=== PATIENT | female | born 1945 | race Caucasian/White ===

== ENCOUNTER → 2017-03-07 | Outpatient (CLI) | payer MEDICARE ==
[~2017-03-07] MED LIST: ACET500T67 PO; ASPI-611 PO; CARB200T5; CITA-50 PO; CLON0.1T97 PO; DOXY100T2 PO; ERGO400C PO; LACT1CAP67 PO; LOVA20TA71 PO; POTA20TA10; PRED20TA PO; PREN1TAB73 PO; TORS10TA17 PO; [UNRECOGNIZED DRUG - CODE] PO
--- NOTE | 2017-03-07 11:15 | DI ---
Indication: ITS.REASON: M25.551 PAIN IN RIGHT HIP PROCEDURE: HIP RIGHT 2 VIEW: Encounter: Initial Comparison: None Findings: There is no acute fracture, dislocation or malalignment identified. Mild degenerative change in the hip joint with small osteophytes on the femoral head. Minimal axial joint space narrowing. Impression: No acute osseous abnormality. Mild osteoarthritis. .
--- NOTE | 2017-03-07 11:17 | DI ---
Indication: ITS.REASON: M54.5 LOW BACK PAIN PROCEDURE: LUMBAR SPINE COMP W/O BEND: Encounter: Initial Comparison: MRI lumbar spine dated August 18, 2015 Findings: Alignment of the lumbar spine is stable. No acute fracture identified. Chronic mild L1 compression deformity. Severe disk space narrowing at L2-L3, L3-L4 with moderate narrowing at L4-L5 and L5-S1. The oblique views show no obvious pars defects. Degenerative facet disease at L5-S1. Cholecystectomy clips. Impression: Moderate to severe degenerative disk disease of the lumbar spine. .
== END ==
LOC: IMA 10:18
PROVIDERS: ATTEND Family Medicine
DX: M16.11 Unilateral primary osteoarthritis, right hip (principal); M47.897 Other spondylosis, lumbosacral region; M51.36 Other intervertebral disc degeneration, lumbar region; M51.37 Other intervertebral disc degeneration, lumbosacral region; M54.5 Low back pain; M25.551 Pain in right hip